=== PATIENT | female | born 1970 | race Caucasian/White ===

== ENCOUNTER 2021-03-14 14:47 | Emergency (ER) | payer OTHER ==
[2021-03-14] MEDS ORDERED: LIDOCAINE 1% MPF 5 ML VIAL ONE (18:30)
--- NOTE | 2021-03-14 18:30 | EDPHYS ---
Physician Documentation [facility] Name: Aakash Burrell Age: 50 yrs Sex: Female : 1970 Arrival Date: 03/14/2021 Time: 14:50 Bed 4 Private MD: HEAVEN Physician Yves Agosto HPI: 03/14 18:13 This 50 yrs old Female presents to ER via Ambulatory with complaints of kb Abscess. 18:13 The patient presents with an abscess of the left axilla. Description: draining, kb erythematous, fluctuant, swollen. Onset: The symptoms/episode began/occurred 3 day(s) ago. Possible cause(s): unknown. Associated signs and symptoms: Pertinent positives: drainage, erythema, swelling. Modifying factors: the symptoms are alleviated by nothing, the symptoms are aggravated by pressure, squeezing the lesion and expressing the contents, touching. Severity of symptoms: At their worst the symptoms were moderate, in the emergency department the symptoms are unchanged. The patient has not experienced similar symptoms in the past. The patient has not recently seen a physician. Historical: - Allergies: 15:11 azathioprine sodium; hb - Immunization history:: Client reports receiving the 2nd dose of the Covid vaccine. - Social history:: Smoking status: Patient denies any tobacco usage or history of. ROS: 18:13 Constitutional: Negative for fever, chills, and weight loss. kb 18:13 Skin: Positive for abscess. 18:13 All other systems are negative. Exam: 18:14 Constitutional: This is a well developed, well nourished patient who is awake, alert, kb and in no acute distress. Head/Face: Normocephalic, atraumatic. ENT: Moist Mucous membranes Cardiovascular: Regular rate and rhythm with a normal S1 and S2. No gallops, murmurs, or rubs. No pulse deficits. Respiratory: Respirations even and unlabored. No increased work of breathing, no retractions or nasal flaring. Abdomen/GI: Soft, non-tender. No distention MS/ Extremity: Pulses equal, no cyanosis. Neurovascular intact. Full, normal range of motion. Neuro: Awake and alert, GCS 15, oriented to person, place, time, and situation. Moves all extremities. Normal gait. Psych: Awake, alert, with orientation to person, place and time. Behavior, mood, and affect are within normal limits. 18:14 Skin: abscess, that is moderate sized, of the left axilla, with drainage, with fluctuance, with induration. Vital Signs: 15:10 BP 148 / 82; Pulse 69; Resp 16; Temp 99.2; Pulse Ox 100% ; Weight 62.6 kg; Height 5 ft. hb 8 in. (172.72 cm); Pain 8/10; 15:10 Body Mass Index 20.98 (62.60 kg, 172.72 cm) hb Procedures: 18:28 I \T\ D: Incision and drainage was performed for an abscess of the left axilla. Prepped kb with Betadine, Anesthetized with 2 ml's 1% Lidocaine. Incised with #11 blade. Drained small amount purulent fluid. Dressing: sterile 4x4 gauze, the patient tolerated the procedure well. MDM: 18:01 Patient medically screened. kb 18:14 Data reviewed: vital signs, nurses notes. Data interpreted: Pulse oximetry: on room air kb is 100 %. Interpretation: normal. Counseling: I had a detailed discussion with the patient and/or guardian regarding: the historical points, exam findings, and any diagnostic results supporting the discharge/admit diagnosis, the need for outpatient follow up, a family practitioner, to return to the emergency department if symptoms worsen or persist or if there are any questions or concerns that arise at home. 03/14 18:07 Order name: Wound Culture 03/14 18:07 Order name: I\T\D Setup; Complete Time: 18:09 kb Administered Medications: 18:22 Drug: Bactrim (trimethoprim-sulfamethoxazole) (160 mg-800 mg (DS) 1 tablet Route: PO; tr6 18:24 Drug: Lidocaine (1 %) 1 vials {Note: administered by KARLA Medina.} Volume: 5 ml; tr6 Route: Infiltration; Disposition: 03/15 09:13 Co-signature as Attending Physician, Yves Agosto MD I agree with the assessment and moriah plan of care. Disposition Summary: 03/14/21 18:29 Discharge Ordered Location: Home kb Condition: Stable kb Diagnosis - Cutaneous abscess of left axilla kb Followup: kb - With: Emergency Department - When: As needed - Reason: Worsening of condition Followup: kb - With: Private Physician - When: 2 - 3 days - Reason: Recheck today's complaints, Continuance of care, Re-evaluation by your physician Discharge Instructions: - Discharge Summary Sheet kb - Skin Abscess, [id number] kb - Incision and Drainage, Care After kb Forms: - Medication Reconciliation Form kb - Thank You Letter kb - Antibiotic Education kb - Prescription Opioid Use kb Prescriptions: - Bactrim DS 800-160 mg Oral Tablet - take 1 tablet by ORAL route every 12 hours for 10 days; 20 tablet; Refills: 0, kb Product Selection Permitted Signatures: Dispatcher [employer] EDMS Marilyn Medina, BEHAVIORAL PEDIATRICIAN-C BEHAVIORAL PEDIATRICIAN-Yves Quigley MD MD cha Baxter, Heather, RN RN Judith Garcia RN RN tr6
--- NOTE | 2021-03-14 18:30 | ER ---
Nurse's Notes [facility] Name: Aakash Burrell Age: 50 yrs Sex: Female : 1970 Arrival Date: 03/14/2021 Time: 14:50 Bed 4 Private MD: Diagnosis: Cutaneous abscess of left axilla Presentation: 03/14 15:10 Chief complaint: Left arm abscess x 3 days. Coronavirus screen: At this time, the client does not indicate any symptoms associated with coronavirus-19. Ebola Screen: No symptoms or risks identified at this time. Initial Sepsis Screen: Does the patient meet any 2 criteria? No. Patient's initial sepsis screen is negative. Does the patient have a suspected source of infection? No. Patient's initial sepsis screen is negative. Risk Assessment: Do you want to hurt yourself or someone else? Patient reports no desire to harm self or others. Onset of symptoms was March 11, 2021. 15:10 Method Of Arrival: Ambulatory 15:10 Acuity: MARCI 4 Triage Assessment: 18:25 General: Appears uncomfortable, Behavior is calm, cooperative, appropriate for age. tr6 Pain: Complains of pain in left axilla. EENT: No deficits noted. Neuro: No deficits noted. Cardiovascular: No deficits noted. Respiratory: No deficits noted. GI: No deficits noted. : No deficits noted. Derm: Skin is fragile, is thin, Abscess located on left axilla. Musculoskeletal: No deficits noted. Historical: - Allergies: 15:11 azathioprine sodium; hb - Immunization history:: Client reports receiving the 2nd dose of the Covid vaccine. - Social history:: Smoking status: Patient denies any tobacco usage or history of. Screenin:02 Abuse screen: Denies threats or abuse. Denies injuries from another. Nutritional ss screening: No deficits noted. Tuberculosis screening: Never had TB. Fall Risk None identified. Vital Signs: 15:10 BP 148 / 82; Pulse 69; Resp 16; Temp 99.2; Pulse Ox 100% ; Weight 62.6 kg; Height 5 ft. hb 8 in. (172.72 cm); Pain 8/10; 15:10 Body Mass Index 20.98 (62.60 kg, 172.72 cm) hb ED Course: 14:50 Patient arrived in ED. rg4 15:11 Triage completed. hb 15:11 Arm band placed on. hb 17:39 [facility] 17:39 Yves Agosto MD is Attending Physician. [facility] 18:01 Marilyn Medina FNP-C is [facility]. kb 18:01 Yves Agosto MD is Attending Physician. kb 18:02 Patient has correct armband on for positive identification. Bed in low position. Call ss light in reach. 18:25 No provider procedures requiring assistance completed. Patient did not have IV access tr6 during this emergency room visit. 18:35 Judith Mott, RN is Primary Nurse. tr6 Administered Medications: 18:22 Drug: Bactrim (trimethoprim-sulfamethoxazole) (160 mg-800 mg (DS) 1 tablet Route: PO; tr6 18:24 Drug: Lidocaine (1 %) 1 vials {Note: administered by KARLA Medina.} Volume: 5 ml; tr6 Route: Infiltration; Outcome: 18:26 Discharged to home ambulatory. tr6 18:26 Condition: good 18:26 Discharge instructions given to patient, Instructed on discharge instructions, follow up and referral plans. no drinking with medication, medication usage, Demonstrated understanding of instructions, follow-up care, medications, Prescriptions given X 1. 18:29 Discharge ordered by MD. kb 18:35 Patient left the ED. tr6 Signatures: Marilyn Medina FNP-C [facility] Sarkis Maldonado PA PA jmm Smirch, Shelby, RN RN Rachael Jimenez RN RN Neetu Almeida rg4 Gayla Figueroa RN RN [facility] Judith Mott, RN RN tr6 Corrections: (The following items were deleted from the chart) 18:04 17:40 Patient placed in an exam room, on a stretcher, ll1 ll1
[2021-03-14] MEDS ORDERED: SMZ./TMP. 800/160 MG TABLET ONE (18:34)
[2021-03-14 18:39] VITALS: BP 148/82; TEMP 99.2; O2SAT 100
== END 2021-03-14 18:35 | disposition home or self-care (01) ==
LOC: ER 14:47
PROC: 0H9CXZZ Drainage of Left Upper Arm Skin, External Approach (ICD-10-PCS; principal; 2021-03-14)
DX: L02.412 Cutaneous abscess of left axilla (principal); Z88.8 Allergy status to other drugs, medicaments and biological substances
CPT/HCPCS: 99283